=== PATIENT | female | born 1980 | race Caucasian/White ===

== ENCOUNTER 2018-11-11 17:00 | Emergency (ER) | payer BC ==
[2018-11-11 17:18] VITALS: BP 159/97
--- NOTE | 2018-11-11 17:23 | UC ---
Respiratory Complaint HPI - HPI Summary HPI Summary: Started w/ coughing for 10 days. At work people were sick. Her head hurts from coughing so much. nonsmoker, doesn't live with smokers. - History of Current Complaint Chief Complaint: UCRespiratory Stated Complaint: CONGESTION Time Seen by Provider: 11/11/18 17:10 Hx Obtained From: Patient Hx Last Menstrual Period: CONTROL Onset/Duration: Gradual Onset - 10 days of cough Pain Intensity: 3 Pain Scale Used: 0-10 Numeric - Allergies/Home Medications Allergies/Adverse Reactions: Allergies Allergy/AdvReac Type Severity Reaction Status Date / Time gluten Allergy Mild fever, Verified 11/11/18 17:18 bloating, constipation vancomycin Allergy Mild Itching Verified 11/11/18 17:18 Home Medications: Home Medications Cyanocobalamin TAB* [Vitamin B12 TAB*] 2,000 mcg PO DAILY 11/11/18 [History Confirmed 11/11/18] D-Methorphan/PE/Acetaminophen [Spare to Share Dayquil Cold & Flu 10-5-325 mg/15Ml] 1 liq PO PRN 11/11/18 [History] Dm/PE/Acetaminophen/Doxylamine [VicChapatiz Nyquil Severe Cold] 1 liq PO PRN 11/11/18 [History] Escitalopram Oxalate [Lexapro 10 mg] 10 mg PO DAILY 11/11/18 [History Confirmed 11/11/18] Thyroid,Pork [[place] Thyroid] 15 mg PO DAILY 11/11/18 [History Confirmed ] Thyroid,Pork [[place] Thyroid] 30 mg PO DAILY 11/11/18 [History Confirmed ] Thyroid,Pork [[place] Thyroid] 120 mg PO DAILY 11/11/18 [History Confirmed ] guaiFENesin ER TAB [Mucinex*] PRN 11/11/18 [History] l-Norgest/E.estradiol-E.estrad [Camrese Lo] 1 tab PO DAILY 11/11/18 [History Confirmed 11/11/18] PMH/Surg Hx/FS Hx/Imm Hx Previously Healthy: Yes Cardiovascular History: Hypertension - Surgical History Surgical History: Yes Surgery Procedure, Year, and Place: gallbladder removed 07/11/11. L4-5 discectomy 04/24/12 - Family History Known Family History: Positive: None - Social History Alcohol Use: Occasionally Substance Use Type: None Smoking Status (MU): Never Smoked Tobacco Review of Systems All Other Systems Reviewed And Are Negative: Yes Constitutional: Positive: Negative Skin: Positive: Negative ENT: Negative: Sore Throat, Nasal Discharge, Sinus Congestion, Sinus Pain/ Tenderness Respiratory: Positive: Cough - productive. Negative: Shortness Of Breath Cardiovascular: Positive: Negative Gastrointestinal: Positive: Negative Genitourinary: Positive: Negative Neurological: Positive: Headache Physical Exam Triage Information Reviewed: Yes Appearance: Well-Appearing Vital Signs: Initial Vital Signs Temp 98 F 11/11/18 17:13 Pulse 99 11/11/18 17:13 Resp 16 11/11/18 17:13 BP 159/97 11/11/18 17:13 Pulse Ox 96 11/11/18 17:13 Vital Signs Reviewed: Yes Eyes: Positive: Conjunctiva Clear ENT: Positive: Pharynx normal, TMs normal Respiratory: Positive: No respiratory distress, No accessory muscle use Neurological: Positive: Alert UC Diagnostic Evaluation - Laboratory O2 Sat by Pulse Oximetry: 96 Respiratory Course/Dx - Course Course Of Treatment: Afebrile pt w/ cough x 10 days. Exam unremarkable. She is specifically requesting antibiotic. It was thought this was viral and would not benefit from antibiotic. BP elevated, should follow up with pcp to monitor. - Differential Dx/Diagnosis Differential Diagnosis/HQI/PQRI: Asthma, Bronchitis, Lower Resp Infection Provider Diagnosis: Lower respiratory infection Discharge - Sign-Out/Discharge Documenting (check all that apply): Patient Departure All imaging exams completed and their final reports reviewed: No Studies - Discharge Plan Condition: Good Disposition: HOME Prescriptions: Acetaminoph/Cod 120/12 mg LIQ* [Tylenol/Codeine 120/12 LIQ*] 10 ml PO Q4H PRN # 200 ml MDD 4 teaspoons PRN Reason: Cough Azithromycin TAB* [Zithromax TAB (Z-ELROY) 250 mg #6 tabs] 250 mg PO DAILY #4 tab Patient Education Materials: Upper Respiratory Infection (ED), Hypertension (ED ) Referrals: Fernando Marrero MD [Primary Care Provider] - Additional Instructions: if not improving please follow up with your pcp. Also discuss your elevated blood pressure with your pcp. - Billing Disposition and Condition Condition: GOOD Disposition: Home
[2018-11-11] MEDS ORDERED: Azithromycin TAB* 250 MG PO ONE (17:31)
== END 2018-11-11 17:58 | disposition home or self-care (01) ==
LOC: UCEAST 17:00
DX: J22 Unspecified acute lower respiratory infection (principal); I10 Essential (primary) hypertension; Z88.1 Allergy status to other antibiotic agents; Z91.048 Other nonmedicinal substance allergy status
CPT/HCPCS: 99212; A9270-GY; G0463